=== PATIENT | female | born 1975 | race Caucasian/White ===

== ENCOUNTER 2018-12-26 10:35 | Outpatient (CLI) | payer SELFPAY | END 2018-12-26 10:36 | disposition home or self-care (01) | LOC: C.LAB 10:35 | DX: Z00.00 Encounter for general adult medical examination without abnormal findings (principal); E11.9 Type 2 diabetes mellitus without complications ==

== ENCOUNTER 2019-01-01 14:29 | Outpatient (CLI) | payer SELFPAY | END 2019-01-01 14:30 | disposition home or self-care (01) | LOC: C.LAB 14:29 | DX: Z00.00 Encounter for general adult medical examination without abnormal findings (principal); E11.9 Type 2 diabetes mellitus without complications ==

== ENCOUNTER 2019-01-10 07:52 | Outpatient (CLI) | payer SELFPAY | END 2019-01-10 07:53 | disposition home or self-care (01) | LOC: C.USIC 07:52 ==

== ENCOUNTER 2019-02-01 11:12 | Outpatient (CLI) | payer OTHER | END 2019-02-01 11:13 | disposition home or self-care (01) | LOC: C.CTH 11:12 | DX: R93.5 Abnormal findings on diagnostic imaging of other abdominal regions, including retroperitoneum (principal) ==